=== PATIENT | female | born 1995 | race Caucasian/White ===

== ENCOUNTER 2017-08-02 06:43 | Emergency (ER) | payer OTHER ==
[~2017-08-02] VITALS: Ht 167.6 cm; Wt 106.6 kg
[~2017-08-02 06:43] MED LIST: Cipro250 MG/5 M PO
[2017-08-02] MEDS ORDERED: AZIT250 PO (07:10)
[2017-08-02] MEDS ORDERED: Robaxin-750750 MG PO (07:23)
[2017-08-02] MEDS ORDERED: METPRE4DP PO (07:23)
[2017-08-02] MEDS ORDERED: Norco 5-325 Ta1 EACH PO (07:23)
[2018-03-20] MEDS ORDERED: Macrobid 100 M100 MG PO (21:40)
== END 2017-08-02 07:43 | disposition home or self-care (01) ==
LOC: ER 06:43
DX: M54.41 Lumbago with sciatica, right side (principal); Z88.1 Allergy status to other antibiotic agents; Z79.2 Long term (current) use of antibiotics
CPT/HCPCS: 99283

== ENCOUNTER → 2018-01-30 | Outpatient (CLI) | payer OTHER ==
[~2018-01-30] MED LIST changes: +AZIT250 PO; +METPRE4DP PO; +Norco 5-325 Ta1 EACH PO; +Robaxin-750750 MG PO
[2018-01-30 12:41] LABS: BASOPHILS ABSOLUTE AUTO 0.04 K/mm3 (0.00-0.23); BASOPHILS PERCENT AUTO 1 % (0-2); EOSINOPHILS ABSOLUTE AUTO 0.16 K/mm3 (0.00-0.68); EOSINOPHILS PERCENT AUTO 2 % (0-6); Hematocrit 43.5 % (33.0-51.0); Hemoglobin 14.7 g/dL (11.5-16.0); IMMATURE GRAN ABSOLUTE AUTO 0.04 K/mm3 (0.00-0.10); IMMATURE GRAN PERCENT AUTO 1 % (0-1); LYMPHOCYTES ABSOLUTE AUTO 2.12 K/mm3 (0.84-5.20); LYMPHOCYTES PERCENT AUTO 26 % (21-46); MONOCYTES PERCENT AUTO 7 % (4-13); Mean Corpuscular HGB 31.8 pg (26.0-34.0); Mean Corpuscular HGB Conc 33.8 g/dL (31.5-36.5); Mean Corpuscular Volume 94 fL (80-100); Mean Platelet Volume 11.6 fL (9.1-12.4); NEUTROPHILS ABSOLUTE AUTO 5.35 K/mm3 (1.96-9.15); NEUTROPHILS PERCENT AUTO 64 % (41-73); Platelet Count 173 K/mm3 (150-400); RDW Coefficient Variation 13.2 % (11.7-14.2); RDW Standard Deviation 45.2 fL (35.1-46.3); Red Blood Cell Count 4.62 M/mm3 (3.80-5.20); White Blood Cell Count 8.31 K/mm3 (4.00-11.30)
[2018-01-30 13:02] LABS: Alanine Aminotransfer (ALT/SGP 26 U/L (12-78); Albumin, Blood 3.7 g/dL (3.4-5.0); Albumin/Globulin Ratio 1.1 (0.8-1.8); Alk Phos 49 U/L (40-126); Anion Gap 8 mmol/L (6-16); Aspartate Aminotrans (AST/SGOT 20 U/L (12-37); Bilirubin, Total 0.3 mg/dL (0.1-1.0); Blood Urea Nitrogen 17 mg/dL (8-24); CO2, Blood 26 mmol/L (21-32); Calcium, Blood 8.7 mg/dL (8.5-10.1); Chloride, Blood 107 mmol/L (98-108); Creatinine, Blood 0.85 mg/dL (0.40-1.00); Globulin, Blood 3.5 g/dL (2.2-4.0); Glomerular Filtration Rate >60 (60-); Glucose, Blood 94 mg/dL (70-99); Potassium, Blood 4.3 mmol/L (3.5-5.5); Sodium, Blood 141 mmol/L (136-145); Thyroid Stimulating Hormone 1.689 uIU/mL (0.360-4.800); Total Protein, Blood 7.2 g/dL (6.4-8.2)
== END ==
LOC: LAB EV 12:37 → LAB SHORT 12:37
PROVIDERS: Physician Assistant Medical
DX: N92.1 Excessive and frequent menstruation with irregular cycle (principal)
CPT/HCPCS: 80053; 84443; 85025

== ENCOUNTER 2018-02-23 18:38 | Emergency (ER) | payer OTHER ==
[~2018-02-23] VITALS: Ht 167.6 cm; Wt 105.2 kg
[2018-02-23] MEDS ORDERED: Prednisone20 MG PO (19:19)
== END 2018-02-23 19:34 | disposition home or self-care (01) ==
LOC: ER 18:38
DX: L50.9 Urticaria, unspecified (principal); Z88.1 Allergy status to other antibiotic agents; F17.200 Nicotine dependence, unspecified, uncomplicated
CPT/HCPCS: 96372; 99282; J2930; Q0163

== ENCOUNTER 2018-12-19 21:35 | Emergency (ER) | payer OTHER ==
[~2018-12-19] VITALS: Ht 167.6 cm; Wt 99.8 kg
[~2018-12-19 21:35] MED LIST changes: +Macrobid 100 M100 MG PO; +Prednisone20 MG PO
== END 2018-12-19 22:45 | disposition home or self-care (01) ==
LOC: ER 21:35
DX: O03.9 Complete or unspecified spontaneous abortion without complication (principal); Z88.1 Allergy status to other antibiotic agents; F17.210 Nicotine dependence, cigarettes, uncomplicated
CPT/HCPCS: 99284

== ENCOUNTER 2018-12-21 14:07 | Day surgery (SDC) | payer OTHER ==
[2018-12-20 14:37] LABS: Hematocrit 38.5 % (33.0-51.0); Hemoglobin 13.1 g/dL (11.5-16.0); Mean Corpuscular HGB 31.4 pg (26.0-34.0); Mean Corpuscular Volume 92 fL (80-100); Mean Platelet Volume 11.8 fL (9.1-12.4); Platelet Count 177 K/mm3 (150-400); RDW Coefficient Variation 13.5 % (11.7-14.2); RDW Standard Deviation 46.1 fL (35.1-46.3); Red Blood Cell Count 4.17 M/mm3 (3.80-5.20); White Blood Cell Count 7.02 K/mm3 (4.00-11.30)
[~2018-12-21] VITALS: Ht 167.6 cm; Wt 99.4 kg
--- NOTE | 2018-12-21 14:31 | NUR ---
History, Chart, Medications and Allergies reviewed before start of procedure. Lungs clear T/O to Auscultation. Patient confirms NPO status and agrees with scheduled surgery. Pre-Op teaching done. Pt verbalizes understanding.
--- NOTE | 2018-12-21 17:30 | NUR ---
INTO STEP VIA LUCIA. S/P D&C. PT A&OX3-REPORTS 5/10 ABDOMINAL PAIN/CRAMPING. REPORTS 02/28 NAUSEA-MED WITH PHERNERGAN 12.5 MG IVPX1. MILD TO MODERATE DRAINAGE TO ZAID PAD.
--- NOTE | 2018-12-21 17:52 | NUR ---
FENTANYL TITRATION IN PACU WAS FOLLOWS: 1707- 25 MCG IV FENTANYL 1712- 25 MCG IV FENTANYL 1720- 25 MCG IV FENTANYL 1727- 25 MCG IV FENTNAYL
--- NOTE | 2018-12-21 18:18 | NUR ---
PT DENIES PAIN OR NAUSEA AT THIS TIME. DISCHARGE INSTRUCTIONS GIVEN.
--- NOTE | 2018-12-21 18:30 | NUR ---
Patient up to Ambulate independently. Gait steady. Discharged via wheelchair to private car for ride home.
== END 2018-12-21 18:30 | disposition home or self-care (01) ==
LOC: ORSCMMR 14:07
PROVIDERS: Obstetrics & Gynecology
PROC: 0UDB7ZX Extraction of Endometrium, Via Natural or Artificial Opening, Diagnostic (ICD-10-PCS; principal; 2018-12-21 15:30)
DX: O02.1 Missed abortion (principal); E66.9 Obesity, unspecified; Z68.35 Body mass index [BMI] 35.0-35.9, adult
CPT/HCPCS: 36415; 84702; 85027; 86850; 86900; 86901; 88305; J0690; J2210; J2250; J2405; J2550; J2704; J2765; J3010; J7120

== ENCOUNTER 2019-04-16 23:41 | Emergency (ER) | payer OTHER ==
[~2019-04-16] VITALS: Ht 167.6 cm; Wt 99.8 kg
[2019-04-17 00:13] LABS: BASOPHILS ABSOLUTE AUTO 0.03 K/mm3 (0.00-0.23); BASOPHILS PERCENT AUTO 0 % (0-2); EOSINOPHILS ABSOLUTE AUTO 0.15 K/mm3 (0.00-0.68); EOSINOPHILS PERCENT AUTO 1 % (0-6); Hematocrit 43.6 % (33.0-51.0); Hemoglobin 14.3 g/dL (11.5-16.0); IMMATURE GRAN ABSOLUTE AUTO 0.04 K/mm3 (0.00-0.10); IMMATURE GRAN PERCENT AUTO 0 % (0-1); LYMPHOCYTES ABSOLUTE AUTO 3.58 K/mm3 (0.84-5.20); LYMPHOCYTES PERCENT AUTO 33 % (21-46); MONOCYTES ABSOLUTE AUTO 0.92 K/mm3 (0.16-1.47); MONOCYTES PERCENT AUTO 9 % (4-13); Mean Corpuscular HGB 30.6 pg (26.0-34.0); Mean Corpuscular HGB Conc 32.8 g/dL (31.5-36.5); Mean Corpuscular Volume 93 fL (80-100); Mean Platelet Volume 11.6 fL (9.1-12.4); NEUTROPHILS ABSOLUTE AUTO 6.03 K/mm3 (1.96-9.15); NEUTROPHILS PERCENT AUTO 56 % (41-73); Platelet Count 220 K/mm3 (150-400); RDW Coefficient Variation 13.5 % (11.7-14.2); RDW Standard Deviation 46.3 fL (35.1-46.3); Red Blood Cell Count 4.68 M/mm3 (3.80-5.20); White Blood Cell Count 10.75 K/mm3 (4.00-11.30)
[2019-04-17 00:33] LABS: Alanine Aminotransfer (ALT/SGP 22 U/L (12-78); Albumin, Blood 3.7 g/dL (3.4-5.0); Alk Phos 62 U/L (50-136); Anion Gap 7 mmol/L (6-16); Aspartate Aminotrans (AST/SGOT 16 U/L (12-37); Bilirubin, Total 0.2 mg/dL (0.1-1.0); Blood Urea Nitrogen 13 mg/dL (8-24); Bun/Creatinine Ratio 15.2 (12.0-20.0); CO2, Blood 26 mmol/L (21-32); Calcium, Blood 8.8 mg/dL (8.5-10.1); Chloride, Blood 109 mmol/L (98-108); Creatinine, Blood 0.86 mg/dL (0.40-1.00); Globulin, Blood 3.7 g/dL (2.2-4.0); Glomerular Filtration Rate >60 (60-); Glucose, Blood 84 mg/dL (70-99); Potassium, Blood 3.9 mmol/L (3.5-5.5); Sodium, Blood 142 mmol/L (136-145); Total Protein, Blood 7.4 g/dL (6.4-8.2)
[2019-04-17 01:39] LABS: Source, Urine Clean Catch
[2019-04-17 01:46] LABS: Bilirubin, Urine Neg (Neg); Blood, Urine Neg (Neg); Glucose Qualitative, Urine Neg (Neg); Ketones, Urine Neg (Neg); Leukocyte Esterase, Urine Neg (Neg); Nitrite, Urine Neg (Neg); Protein, Urine Neg (Neg); Specific Gravity, Urine 1.025 (1.003-1.022); Urobilinogen, Urine NORM (Normal)
[2019-04-17 01:47] LABS: Appearance, Urine Clear (Clear); Color, Urine Yellow (P-Yellow)
== END 2019-04-17 02:17 | disposition home or self-care (01) ==
LOC: ER 23:41
PROVIDERS: Emergency Medicine
DX: J06.9 Acute upper respiratory infection, unspecified (principal); Z88.1 Allergy status to other antibiotic agents; F17.210 Nicotine dependence, cigarettes, uncomplicated
CPT/HCPCS: 36415; 71046; 80053; 81003; 83690; 84703; 85025; 99283-25

== ENCOUNTER 2020-12-07 09:46 | Emergency (ER) | payer OTHER ==
[~2020-12-07] VITALS: Ht 167.6 cm; Wt 111.1 kg
[2020-12-07] MEDS ORDERED: CYCL10 PO (11:17)
[2020-12-07] MEDS ORDERED: ACET500 PO (11:17)
[2020-12-07] MEDS ORDERED: NAPROXEN250 M1 PO (11:17)
== END 2020-12-07 11:33 | disposition home or self-care (01) ==
LOC: ER 09:46
DX: M25.511 Pain in right shoulder (principal); Z88.1 Allergy status to other antibiotic agents
CPT/HCPCS: 82947; 96374; 99283-25; A9270; J1885

== ENCOUNTER 2021-06-10 08:56 | Emergency (ER) | payer OTHER ==
[~2021-06-10] VITALS: Ht 167.6 cm; Wt 108.9 kg
[~2021-06-10 08:56] MED LIST changes: +ACET500 PO; +CYCL10 PO; +NAPROXEN250 M1 PO
[2021-06-10] MEDS ORDERED: Nitrofurantoin100 M1 PO (09:10)
[2021-06-10 09:37] LABS: BASOPHILS ABSOLUTE AUTO 0.04 K/mm3 (0.00-0.23); BASOPHILS PERCENT AUTO 0 % (0-2); EOSINOPHILS ABSOLUTE AUTO 0.12 K/mm3 (0.00-0.68); EOSINOPHILS PERCENT AUTO 1 % (0-6); Hematocrit 42.6 % (33.0-51.0); Hemoglobin 14.3 g/dL (11.5-16.0); IMMATURE GRAN ABSOLUTE AUTO 0.03 K/mm3 (0.00-0.10); IMMATURE GRAN PERCENT AUTO 0 % (0-1); LYMPHOCYTES ABSOLUTE AUTO 2.45 K/mm3 (0.84-5.20); LYMPHOCYTES PERCENT AUTO 27 % (21-46); MONOCYTES ABSOLUTE AUTO 0.56 K/mm3 (0.16-1.47); MONOCYTES PERCENT AUTO 6 % (4-13); Mean Corpuscular HGB 30.2 pg (26.0-34.0); Mean Corpuscular HGB Conc 33.6 g/dL (31.5-36.5); Mean Corpuscular Volume 90 fL (80-100); NEUTROPHILS ABSOLUTE AUTO 5.97 K/mm3 (1.96-9.15); NEUTROPHILS PERCENT AUTO 65 % (41-73); Platelet Count 241 K/mm3 (150-400); RDW Standard Deviation 46.8 fL (35.1-46.3); Red Blood Cell Count 4.73 M/mm3 (3.80-5.20); White Blood Cell Count 9.17 K/mm3 (4.00-11.30)
[2021-06-10 09:56] LABS: Alanine Aminotransfer (ALT/SGP 42 U/L (12-78); Albumin, Blood 3.7 g/dL (3.4-5.0); Albumin/Globulin Ratio 0.9 (0.8-1.8); Alk Phos 64 U/L (50-136); Anion Gap 8 mmol/L (6-16); Aspartate Aminotrans (AST/SGOT 25 U/L (12-37); Bilirubin, Total 0.3 mg/dL (0.1-1.0); Blood Urea Nitrogen 12 mg/dL (8-24); Bun/Creatinine Ratio 15.9 (12.0-20.0); CO2, Blood 20 mmol/L (21-32); Calcium, Blood 8.5 mg/dL (8.5-10.1); Chloride, Blood 113 mmol/L (98-108); Creatinine, Blood 0.75 mg/dL (0.40-1.00); Globulin, Blood 3.9 g/dL (2.2-4.0); Glomerular Filtration Rate >60 (60-); Glucose, Blood 110 mg/dL (70-99); Potassium, Blood 4.1 mmol/L (3.5-5.5); Sodium, Blood 141 mmol/L (136-145); Total Protein, Blood 7.6 g/dL (6.4-8.2)
[2021-06-10 11:20] LABS: Source, Urine Clean Catch
[2021-06-10 11:28] LABS: Appearance, Urine Clear (Clear); Blood, Urine Neg (Neg); Color, Urine Amber (P-Yellow); Glucose Qualitative, Urine Neg (Neg); Ketones, Urine Neg (Neg); Leukocyte Esterase, Urine Neg (Neg); Nitrite, Urine Pos (Neg); Protein, Urine 2+ (Neg); Urobilinogen, Urine 2+ (Normal)
[2021-06-10 11:38] LABS: Bilirubin, Urine 2+ (Neg)
[2021-06-10 11:39] LABS: White Blood Cells, Urine 0-2 /hpf (0-5)
[2021-06-10 11:40] LABS: Amorphous Light (0-Heavy); Bacteria Few /hpf; Mucus Heavy (0-Heavy); Red Blood Cells, Urine 0-2 /hpf (0-2); Squamous Epithelial Cells Few /hpf (Few)
[2021-06-10] MEDS ORDERED: IBUP800 PO (14:58)
[2021-06-10] MEDS ORDERED: Norco 5-325 Ta1 EACH PO (14:58)
== END 2021-06-10 15:26 | disposition home or self-care (01) ==
LOC: ER 08:56
PROVIDERS: Emergency Medicine
DX: N83.01 Follicular cyst of right ovary (principal); F17.210 Nicotine dependence, cigarettes, uncomplicated
CPT/HCPCS: 36415; 74177; 76857; 80053; 81001; 81025; 85025; 96374-59; 99284-25; J1885; Q9967

== ENCOUNTER 2021-08-20 09:46 | Day surgery (SDC) | payer OTHER ==
[2021-08-19 15:23] LABS: BASOPHILS ABSOLUTE AUTO 0.04 K/mm3 (0.00-0.23); BASOPHILS PERCENT AUTO 1 % (0-2); EOSINOPHILS ABSOLUTE AUTO 0.05 K/mm3 (0.00-0.68); EOSINOPHILS PERCENT AUTO 1 % (0-6); Hematocrit 42.5 % (33.0-51.0); Hemoglobin 14.3 g/dL (11.5-16.0); IMMATURE GRAN ABSOLUTE AUTO 0.02 K/mm3 (0.00-0.10); IMMATURE GRAN PERCENT AUTO 0 % (0-1); LYMPHOCYTES PERCENT AUTO 24 % (21-46); MONOCYTES ABSOLUTE AUTO 0.59 K/mm3 (0.16-1.47); MONOCYTES PERCENT AUTO 7 % (4-13); Mean Corpuscular HGB 30.5 pg (26.0-34.0); Mean Corpuscular HGB Conc 33.6 g/dL (31.5-36.5); Mean Corpuscular Volume 91 fL (80-100); Mean Platelet Volume 11.1 fL (9.1-12.4); NEUTROPHILS ABSOLUTE AUTO 5.83 K/mm3 (1.96-9.15); NEUTROPHILS PERCENT AUTO 68 % (41-73); Platelet Count 235 K/mm3 (150-400); RDW Coefficient Variation 14.2 % (11.7-14.2); RDW Standard Deviation 47.3 fL (35.1-46.3); Red Blood Cell Count 4.69 M/mm3 (3.80-5.20); White Blood Cell Count 8.63 K/mm3 (4.00-11.30)
[~2021-08-20] VITALS: Wt 102.9 kg
[~2021-08-20 09:46] MED LIST changes: +IBUP800 PO; +Nitrofurantoin100 M1 PO
--- NOTE | 2021-08-20 12:17 | NUR ---
08/20/21 1217 Allie Alvarado UPON ARRIVAL TO STEP DOWN PT VOMMITTED X1, CLEAR YELLOW EMISIS. RN ASSISTED PT TO CHANGE ZAID PAD AND APPLIED NEW PAD/MADONNA PANTIES. PT INTO CHAIR AT 1200. AT CHAIRSIDE. NAUSEA TREATED PER DR'S ORDERS. WARM BLANKET APPLIED TO ABDOMEN. RN GIVING REPORT TO ORD.TCR AT 1217.
== END 2021-08-20 13:13 | disposition home or self-care (01) ==
LOC: ORSCSDS 09:46 → ORSCMMR 10:00 → ORD 11:00 → ORSCSDS 11:00
PROVIDERS: Obstetrics & Gynecology
PROC: 10D17ZZ Extraction of Products of Conception, Retained, Via Natural or Artificial Opening (ICD-10-PCS; principal; 2021-08-20 10:00)
DX: O02.1 Missed abortion (principal); E66.9 Obesity, unspecified; Z68.36 Body mass index [BMI] 36.0-36.9, adult
CPT/HCPCS: 36415; 84702; 85025; 86850; 86900; 86901; 88305; J0690; J1100; J2210; J2250; J2405; J2704; J3010; J7120

== ENCOUNTER 2023-06-09 11:39 | Inpatient (IN) | payer OTHER ==
[2023-06-09] VITALS (33 sets, daily range): BP systolic 108–140; BP diastolic 57–90
[~2023-06-09] VITALS: Ht 165.1 cm; Wt 105.0 kg
[2023-06-09] MEDS ORDERED: OMEP20ER PO (12:14)
[2023-06-09] MEDS ORDERED: ACYC400 PO (12:14)
[2023-06-09 12:28] LABS: BASOPHILS ABSOLUTE AUTO 0.06 K/mm3 (0.00-0.23); BASOPHILS PERCENT AUTO 0 % (0-2); EOSINOPHILS ABSOLUTE AUTO 0.13 K/mm3 (0.00-0.68); EOSINOPHILS PERCENT AUTO 1 % (0-6); Hematocrit 35.4 % (33.0-51.0); Hemoglobin 12.3 g/dL (11.5-16.0); IMMATURE GRAN ABSOLUTE AUTO 0.25 K/mm3 (0.00-0.10); IMMATURE GRAN PERCENT AUTO 2 % (0-1); LYMPHOCYTES ABSOLUTE AUTO 3.25 K/mm3 (0.84-5.20); LYMPHOCYTES PERCENT AUTO 22 % (21-46); MONOCYTES ABSOLUTE AUTO 0.95 K/mm3 (0.16-1.47); MONOCYTES PERCENT AUTO 7 % (4-13); Mean Corpuscular HGB 31.8 pg (26.0-34.0); Mean Corpuscular HGB Conc 34.7 g/dL (31.5-36.5); Mean Corpuscular Volume 92 fL (80-100); Mean Platelet Volume 10.5 fL (9.1-12.4); NEUTROPHILS ABSOLUTE AUTO 10.05 K/mm3 (1.96-9.15); NEUTROPHILS PERCENT AUTO 68 % (41-73); Platelet Count 292 K/mm3 (150-400); RDW Coefficient Variation 13.2 % (11.7-14.2); RDW Standard Deviation 43.2 fL (35.1-46.3); Red Blood Cell Count 3.87 M/mm3 (3.80-5.20); White Blood Cell Count 14.69 K/mm3 (4.00-11.30)
[2023-06-10] VITALS (13 sets, daily range): BP systolic 109–137; BP diastolic 61–89
[2023-06-10 08:52] LABS: BASOPHILS ABSOLUTE AUTO 0.05 K/mm3 (0.00-0.23); BASOPHILS PERCENT AUTO 0 % (0-2); EOSINOPHILS PERCENT AUTO 1 % (0-6); Hematocrit 28.5 % (33.0-51.0); Hemoglobin 9.9 g/dL (11.5-16.0); IMMATURE GRAN ABSOLUTE AUTO 0.26 K/mm3 (0.00-0.10); IMMATURE GRAN PERCENT AUTO 1 % (0-1); LYMPHOCYTES ABSOLUTE AUTO 3.44 K/mm3 (0.84-5.20); LYMPHOCYTES PERCENT AUTO 17 % (21-46); MONOCYTES ABSOLUTE AUTO 1.35 K/mm3 (0.16-1.47); MONOCYTES PERCENT AUTO 7 % (4-13); Mean Corpuscular HGB 31.9 pg (26.0-34.0); Mean Corpuscular HGB Conc 34.7 g/dL (31.5-36.5); Mean Corpuscular Volume 92 fL (80-100); Mean Platelet Volume 10.5 fL (9.1-12.4); NEUTROPHILS ABSOLUTE AUTO 14.53 K/mm3 (1.96-9.15); NEUTROPHILS PERCENT AUTO 74 % (41-73); Platelet Count 247 K/mm3 (150-400); RDW Coefficient Variation 13.2 % (11.7-14.2); RDW Standard Deviation 43.3 fL (35.1-46.3); White Blood Cell Count 19.73 K/mm3 (4.00-11.30)
[2023-06-11 00:39] VITALS: BP 137/68
[2023-06-11 07:21] VITALS: BP 113/71
[2023-06-11 12:15] VITALS: BP 119/76
[2023-06-11 13:45] VITALS: BP 126/73
--- NOTE | 2023-06-11 14:27 | NUR ---
DISCHARGED MOTHER HOME WITH BABY
== END 2023-06-11 14:30 | disposition home or self-care (01) | DRG 807 ==
LOC: OBS 11:39 → BC 11:41 → OBS 12:03 → BC 12:04
PROVIDERS: ADMIT Obstetrics & Gynecology
PROC: 10E0XZZ Delivery of Products of Conception, External Approach (ICD-10-PCS; principal; 2023-06-10)
PROC: 0HQ9XZZ Repair Perineum Skin, External Approach (ICD-10-PCS; 2023-06-10)
PROC: 3E0R3BZ Introduction of Anesthetic Agent into Spinal Canal, Percutaneous Approach (ICD-10-PCS; 2023-06-10)
PROC: 00HU33Z Insertion of Infusion Device into Spinal Canal, Percutaneous Approach (ICD-10-PCS; 2023-06-10)
DX: O42.02 Full-term premature rupture of membranes, onset of labor within 24 hours of rupture (principal); Z37.0 Single live birth; O99.334 Smoking (tobacco) complicating childbirth; F17.210 Nicotine dependence, cigarettes, uncomplicated; Z3A.37 37 weeks gestation of pregnancy; Z98.890 Other specified postprocedural states; Z88.1 Allergy status to other antibiotic agents; Z79.899 Other long term (current) drug therapy; O99.214 Obesity complicating childbirth; O69.81X0 Labor and delivery complicated by cord around neck, without compression, not applicable or unspecified; O70.0 First degree perineal laceration during delivery
CPT/HCPCS: 36415; 51702; 85025; 86850; 86900; 86901; 86923; A9270; J1885; J2590; J3010; J7120

== ENCOUNTER → 2024-02-27 | Outpatient (CLI) | payer OTHER ==
[~2024-02-27] MED LIST changes: +ACYC400 PO; +OMEP20ER PO
[2024-02-27 12:00] LABS: BASOPHILS ABSOLUTE AUTO 0.05 K/mm3 (0.00-0.23); BASOPHILS PERCENT AUTO 0 % (0-2); EOSINOPHILS ABSOLUTE AUTO 0.08 K/mm3 (0.00-0.68); EOSINOPHILS PERCENT AUTO 1 % (0-6); Hematocrit 42.2 % (33.0-51.0); Hemoglobin 14.3 g/dL (11.5-16.0); IMMATURE GRAN ABSOLUTE AUTO 0.04 K/mm3 (0.00-0.10); IMMATURE GRAN PERCENT AUTO 0 % (0-1); LYMPHOCYTES PERCENT AUTO 18 % (21-46); MONOCYTES ABSOLUTE AUTO 0.97 K/mm3 (0.16-1.47); MONOCYTES PERCENT AUTO 8 % (4-13); Mean Corpuscular HGB 30.7 pg (26.0-34.0); Mean Corpuscular HGB Conc 33.9 g/dL (31.5-36.5); Mean Corpuscular Volume 91 fL (80-100); Mean Platelet Volume 11.3 fL (9.1-12.4); NEUTROPHILS ABSOLUTE AUTO 8.97 K/mm3 (1.96-9.15); NEUTROPHILS PERCENT AUTO 73 % (41-73); Platelet Count 266 K/mm3 (150-400); RDW Coefficient Variation 14.1 % (11.7-14.2); Red Blood Cell Count 4.66 M/mm3 (3.80-5.20); White Blood Cell Count 12.31 K/mm3 (4.00-11.30)
[2024-02-27 12:19] LABS: Progesterone 10.4 ng/mL
[2024-02-27 12:29] LABS: Albumin/Globulin Ratio 1.2 (0.8-1.8); Bilirubin, Total 0.8 mg/dL (0.1-1.0); Bun/Creatinine Ratio 12.1 (12.0-20.0); Calcium, Blood 9.2 mg/dL (8.5-10.1); Creatinine, Blood 0.83 mg/dL (0.40-1.00); Globulin, Blood 3.4 g/dL (2.2-4.0); Potassium, Blood 3.7 mmol/L (3.5-5.5); Total Protein, Blood 7.4 g/dL (6.4-8.2)
== END | disposition home or self-care (01) ==
LOC: LAB 10:15 → LAB SHORT 10:15
PROVIDERS: Obstetrics & Gynecology
DX: O99.891 Other specified diseases and conditions complicating pregnancy (principal); R10.84 Generalized abdominal pain
CPT/HCPCS: 80053; 84144; 84702; 85025; 87086